=== PATIENT | female | born 1970 | race Two or more races ===

== ENCOUNTER 2025-08-22 09:50 | Outpatient (CLI) | payer MEDICAID ==
--- NOTE | 2025-08-22 18:53 | DVHSR ---
APPROVED REPORT EXAM: Two-dimensional and M-mode echocardiogram with Doppler and color Doppler. INDICATION Pre-Op RISK FACTORS Height: 65, Weight: 140 DIMENSIONS LVDd 3.8 (3.8-5.7cm) LA (2D) 3.4 (1.9-4.0cm) Aortic Root 3.0 (2.0-3.7cm) LVDs 2.7 (2.5-4.0cm) LA (MM) (1.9-4.0cm) Aortic Cusp Exc 1.9 (1.5-2.0cm) EF (%) 58.0 (55-70%) Rt. Atrium 3.0 (1.9-4.0cm) Asc. Aorta cm IVSd 1.1 (0.7-1.1cm) RV (D) (1.8-2.4cm) PWd 1.2 (0.7-1.1cm) Mitral Valve Mitral Mitral Stenosis E wave 0.65m/s MV Mean GR. mmHg A wave 0.76m/s MV Peak GR. mmHg E/A ratio 0.9 2D MVA cm2 DECEL Time 222ms PRESS 1/2 Time ms Aortic Valve Aortic Valve Aortic Stenosis V1 0.95m/s AO Mean GR. 4mmHg V2 1.24m/s AO Peak GR. 6mmHg LVOT Diameter 2.0 (1.8-2.4cm) Doppler CELINA 2.41cm2 Pulmonic Valve V2 0.84m/s Tricuspid Valve RVSP 3mmHg Conclusion Sinus rhythm. Left atrial enlargement with mild aortic root enlargement. Mild dilation of the sinuses of Valsalva. The mitral aortic and pulmonic or structurally normal. The tricuspid is normal. Left ventricular function is preserved at 60% with normal right ventricular function. Doppler reveals No pericardial effusion masses or vegetations.
== END 2025-08-22 17:00 | disposition home or self-care (01) ==
LOC: XYW 09:50
PROVIDERS: ATTEND Licensed Practical Nurse
DX: Z01.810 Encounter for preprocedural cardiovascular examination (principal); I51.7 Cardiomegaly; M17.12 Unilateral primary osteoarthritis, left knee
CPT/HCPCS: 93306

== ENCOUNTER 2025-09-12 12:07 | Outpatient (CLI) | payer MEDICAID ==
[2025-09-12 13:02] LABS: Hematocrit 44.7 % (36.0-46.0); Hemoglobin 15.2 g/dL (12.2-16.2); Mean Corpuscular Hemoglobin 31.4 pg (28.0-32.0); Mean Corpuscular Volume 92.3 fL (80.0-100.0); Nucleated Red Blood Cells % 0.1 %
[2025-09-12 13:41] LABS: Alanine Aminotransferase 15 U/L (7-40); Albumin 4.7 g/dL (3.2-4.8); Alkaline Phosphatase 96 U/L (46-116); Anion Gap 10 (5-15); BUN/Creatinine Ratio 11.5 (10.0-20.0); Bilirubin, Total 0.7 mg/dL (0.2-1.0); Blood Urea Nitrogen 13 mg/dL (9-23); Calcium 9.8 mg/dL (8.7-10.4); Carbon Dioxide 29 mmol/L (20-31); Chloride 103 mmol/L (98-107); Cholesterol 175 mg/dL (< 200); Glucose 78 mg/dL (74-106); Potassium 4.0 mmol/L (3.5-5.1); Sodium 142 mmol/L (136-145); Total Protein 7.7 g/dL (5.7-8.2); Triglycerides 91 mg/dL (< 150)
[2025-09-12 13:46] LABS: Free T3 1.98 pg/mL (2.3-4.2); HDL Cholesterol 71 mg/dL (40-59)
[2025-09-12 15:05] LABS: Free T4 (Free Thyroxine) 1.0 ng/dL (0.89-1.76)
[2025-09-13 10:07] LABS: Anti-Nuclear Antibody Direct Positive (Negative); Anti-dsDNA Antibody <1 IU/mL (0-9); Antiscleroderma-70 Antibody <0.2 AI (0.0-0.9); Sjogren's Anti-SS-A Antibody <0.2 AI (0.0-0.9); Sjogren's Anti-SS-B Antibody <0.2 AI (0.0-0.9)
== END 2025-09-12 17:00 | disposition home or self-care (01) ==
LOC: LAB 12:07
PROVIDERS: ATTEND Internal Medicine Endocrinology, Diabetes & Metabolism
DX: E03.9 Hypothyroidism, unspecified (principal)
CPT/HCPCS: 36415; 80053; 80061; 84439; 84443; 84481; 85025; 86160; 86225; 86235; 86376; 86431